=== PATIENT | female | born 1950 | race Two or more races ===

== ENCOUNTER 2020-02-03 08:00 | Outpatient (CLI) | payer MEDICARE, OTHER | END 2020-02-03 23:59 | disposition home or self-care (01) | LOC: WOU 08:00 | PROVIDERS: ATTEND Podiatrist Foot & Ankle Surgery | DX: M72.2 Plantar fascial fibromatosis (principal); M21.41 Flat foot [pes planus] (acquired), right foot; M54.30 Sciatica, unspecified side; R26.2 Difficulty in walking, not elsewhere classified; M19.90 Unspecified osteoarthritis, unspecified site | CPT/HCPCS: G0463 ==

== ENCOUNTER 2020-02-08 12:32 | Outpatient (CLI) | payer MEDICARE, OTHER | END 2020-02-08 23:59 | disposition home or self-care (01) | LOC: RAD 12:32 | PROVIDERS: ATTEND Podiatrist Foot & Ankle Surgery | DX: M19.072 Primary osteoarthritis, left ankle and foot (principal); M19.071 Primary osteoarthritis, right ankle and foot; M20.12 Hallux valgus (acquired), left foot; M20.11 Hallux valgus (acquired), right foot; M77.32 Calcaneal spur, left foot; M77.31 Calcaneal spur, right foot; M72.2 Plantar fascial fibromatosis | CPT/HCPCS: 73630-TC ==

== ENCOUNTER 2020-02-21 08:45 | Outpatient (CLI) | payer MEDICARE, OTHER | END 2020-02-21 23:59 | disposition home or self-care (01) | LOC: WOU 08:45 | PROVIDERS: ATTEND Podiatrist Foot & Ankle Surgery | DX: M72.2 Plantar fascial fibromatosis (principal); M21.41 Flat foot [pes planus] (acquired), right foot; R26.2 Difficulty in walking, not elsewhere classified; M79.671 Pain in right foot; M54.30 Sciatica, unspecified side; Z88.8 Allergy status to other drugs, medicaments and biological substances | CPT/HCPCS: G0463 ==

== ENCOUNTER 2020-03-06 09:00 | Outpatient (CLI) | payer MEDICARE, OTHER | END 2020-03-06 23:59 | disposition home or self-care (01) | LOC: WOU 09:00 | PROVIDERS: ATTEND Podiatrist Foot & Ankle Surgery | DX: M72.2 Plantar fascial fibromatosis (principal); M21.41 Flat foot [pes planus] (acquired), right foot; G57.62 Lesion of plantar nerve, left lower limb; R26.2 Difficulty in walking, not elsewhere classified; M54.30 Sciatica, unspecified side | CPT/HCPCS: G0463 ==